=== PATIENT | male | born 1955 | race Caucasian/White ===

== ENCOUNTER → 2019-07-26 | Outpatient (CLI) | payer BC, OTHER ==
--- NOTE | 2019-07-26 13:56 | RAD ---
Bone Densitometry History: Reason: SCREENING / Spl. Instructions: / History: Findings: Bone Densitometry was performed with dual photon absorption of the lumbar spine and right proximal femur. Lumbar Spine: Bone density is 1.357 g/cm2 for L1-L4. T-score is 1.1. Z-score is 1.3. Right total femur: Bone density is 1.121 g/cm2. T-score is 0.5. Z-score is 0.9. IMPRESSION: There is normal bone mineral density of the lumbar spine and the right femur. World [employer] Organization definition of osteoporosis and osteopenia for women: normal equals T score at or above -1.0 standard deviations; osteopenia equals T score between -1.0 and -2.5 standard deviations; osteoporosis equals T score at or below -2.5 standard deviations. Electronically signed by: David Spivey MD (07/26/2019 1:53 PM) [id number]
== END | disposition home or self-care (01) ==
LOC: DXRAD 09:40
PROVIDERS: ATTEND Family Medicine
DX: E21.0 Primary hyperparathyroidism (principal)
CPT/HCPCS: 77080